=== PATIENT | female | born 1965 | race Caucasian/White ===

== ENCOUNTER → 2019-07-15 | Outpatient (CLI) | payer MEDICARE ==
[~2019-07-15] MED LIST: GADOBENATE DIMEGLUMINE 1 ML IV ONE
--- NOTE | 2019-07-15 18:47 | Diagnostic Imaging Report ---
History: Multiple sclerosis. No new symptoms Comparison studies: None Technique:: Sagittal T1, T2 and inversion recovery, axial T1 and T2 Postcontrast axial and sagittal T1. Intravenous contrast: 16 cc of MultiHance Findings: Motion artifact limits evaluation in some of the sequences. Spinal cord size: Normal in size and configuration. T2 lesion load: No demyelinating plaques. Hypointense foci: None. Enhancing lesions: None Additional findings: Mild degenerative changes with decreased intervertebral space at the mid cervical spine and mild reversal of the lordosis, without significant (moderate or severe) canal stenosis or foraminal narrowing. Partially visualized T2 hyperintensity at the leyda, which could be related to demyelinating lesion. IMPRESSION: 1. No cervical spinal cord lesion is seen. 2. No abnormal enhancement Signed by: DR Sergey Doyle M.D. on 07/15/2019 6:44 PM
--- NOTE | 2019-07-15 19:04 | Diagnostic Imaging Report ---
History: Multiple sclerosis Comparison studies: None Technique: Precontrast brain: 3-D T2 flair with multiplanar reconstruction, axial T1 flair, and DWI Postcontrast brain: 3-D T1 with multiplanar reconstruction, axial T2. Intravenous contrast: 16 cc of MultiHance Findings: T2 lesion load: Number: More than 50, too numerous to count Size: Discrete lesions measuring from 0.2-1.2 cm. Confluent lesions at the bilateral periatrial white matter Location: 1. Juxtacortical, deep, periventricular, subependymal, callosal and callosal septal, 2. Bilateral central leyda and left cerebellar T1 hypointense foci: Moderately hypointense foci without CSF signal intensity Enhancing lesions: None Corpus callosum volume: Mild volume loss Brain volume: Adequate for age. Additional abnormalities: Prominent pineal gland with mild effacement of the superior quadrigeminal plate cistern IMPRESSION: 1. Mostly supratentorial nonenhancing white matter lesions, most consistent with multiple sclerosis 2. Mild callosal volume loss Signed by: DR Sergey Doyle M.D. on 07/15/2019 7:00 PM
== END ==
LOC: MRI 09:02
PROVIDERS: ATTEND Psychiatry & Neurology Neurology
DX: G35 Multiple sclerosis (principal)
CPT/HCPCS: 70553; 72156; A9577